=== PATIENT | male | born 1955 | race Caucasian/White ===

== ENCOUNTER → 2018-07-07 16:50 | Outpatient (CLI) | payer OTHER, SELFPAY ==
--- NOTE | 2018-07-07 16:54 | RAD_ITS ---
STUDY: X-RAY - RIGHT ANKLE REASON FOR EXAM: Male, 63 years old. Injury. Pain TECHNIQUE: 3 view(s) of the ankle. COMPARISON: None. FINDINGS: There is a minimally avulsed (1.2 mm) fracture involving the tip of the lateral malleolus with adjacent soft tissue swelling. There is no fracture of the medial malleolus and no soft tissue swelling around the medial malleolus. The ankle mortise and the subtalar joints are within normal limits. RAD/Ankle min 3 Views IMPRESSION: A minimally avulsed (1.2 mm) fracture involving the lateral malleolar tip with adjacent soft tissue swelling Electronically Signed: Abraham Hubbard MD at 23:31 EST Tel , Service support ,
== END ==
PROVIDERS: Family Provider Family Medicine; PCP Family Medicine; Referring Provider Family Medicine; Visit Provider Family Medicine
DX: S82.61XA Displaced fracture of lateral malleolus of right fibula, initial encounter for closed fracture (principal); S93.401A Sprain of unspecified ligament of right ankle, initial encounter; X58.XXXA Exposure to other specified factors, initial encounter
CPT/HCPCS: 73610

== ENCOUNTER 2021-12-18 00:13 | Observation (INO) | payer OTHER, SELFPAY ==
[2021-12-18] VITALS (16 sets, daily range): BP systolic 112–158; BP diastolic 62–92; PULSE 66–92; RESP 16–18; TEMP 36.5–38.1; O2SAT 93–99; BMI 26.9; BMI 26.4
--- NOTE | 2021-12-18 | GALL_PTH ---
PATIENT: JAMISON GARCIA LOC: MS3 U#:[id number] AGE/SX: 66/M ROOM: [facility] RE12/18/[address]: Dr. Unique Ovalle MD : [id number] BED: 1 DIS: 12/19/2021 SPEC #: [id number] RECD: 12/18/21 16:11 STATUS: PATTI ELIO #: [id number] LEX: 12/18/21 00:[address]: Unique Ovalle DEPT: SURGICAL PATHOLOGY RECD BY: Alberto Hicks ENTERED: 12/19/21 08:42 SP TYPE: DAYNA STEARNS DR: Stephan Belle Tissues: Gallbladder, NOS Procedures: Surgery Specimen Level III HEADER OPERATION: Laparoscopic cholecystectomy with IOC PRE-OP DIAGNOSIS: Acute cholecystitis, gallbladder sludge TISSUE SUBMITTED: Gallbladder MICROSCOPIC DIAGNOSIS Gallbladder, cholecystectomy: Acute and chronic cholecystitis. See comment. JUAN:ashley 12/20/2021 COMMENT No stones are identified in the container or in the gallbladder. MICROSCOPIC DESCRIPTION Slides are reviewed. GROSS DESCRIPTION Received is one container labeled with the patient's name and designated gallbladder. The specimen consists of a gallbladder measuring 9 cm in length and up to 3.5 cm in diameter. The external surface is pink-hayes, smooth and glistening for the most part. Focally it is granular, hemorrhagic and contains cautery artifact. The gallbladder contains hemorrhagic, purulent bile. No stones are identified in the container or in the gallbladder. The mucosa is bile-stained and without any mass lesions. The gallbladder wall measures up to 0.3 cm in thickness. Exhauster sections from the gallbladder and the cystic duct are submitted in one cassette. / SJ:rg 12/19/2021 TC:2 CPT: 08685
--- NOTE | 2021-12-18 00:34 | CT_ITS ---
STUDY: CT ABDOMEN AND PELVIS WITH CONTRAST REASON FOR EXAM: Male, 66 years old. RUQ pain RADIATION DOSAGE (If Supplied By Facility): CTDIvol = ( 12.22 ) mGy, DLP = ( 810.77 ) mGycm TECHNIQUE: Transaxial images were obtained from the dome of the diaphragm to the symphysis pubis without oral contrast. IV 75mL Isovue-370 was administered. Sagittal and coronal images were reconstructed. Individualized dose optimization techniques were used for this CT. COMPARISON: None. FINDINGS: The visualized lung bases are unremarkable. The visualized portions of the heart are within normal limits. Normal liver. There is mild thickening of the gallbladder wall may represent early cholecystitis. Normal spleen. Normal pancreas. Normal bilateral adrenal glands. Normal right kidney. Normal left kidney. Normal visualized stomach. Normal small intestine. There are multiple colonic diverticula consistent with diverticulosis. The appendix is visualized and appears normal. Normal abdominal aorta. Normal inferior vena cava. Normal retroperitoneum. Normal urinary bladder. Normal abdominal wall. Normal osseous structures. CT/Abdomen/Pelvis W IV Cont ONLY IMPRESSION: There is mild thickening of the gallbladder wall may represent early cholecystitis. Electronically Signed: Dora Edge MD at 2:39 EDT ,
--- NOTE | 2021-12-18 00:35 | EKG12_ITS ---
Test Reason : CHEST PAIN Blood Pressure : / mmHG Vent. Rate : 064 BPM Atrial Rate : 064 BPM P-R Int : 178 ms QRS Dur : 084 ms QT Int : 410 ms P-R-T Axes : 050 012 035 degrees QTc Int : 422 ms Normal sinus rhythm Normal ECG Confirmed by HUMBERTO FERGUSON, MARIANA ([id number]), publications editor RENEA GIBSON ([id number]) on 12/20/2021 9:05:53 AM Referred By: RICHARD Confirmed By:MARIANA PAUL MD
[2021-12-18] MEDS: 0.9% Normal Saline 1,000 ML 999 ML IV (00:40)
[2021-12-18 00:41] LABS: Absolute Lymphocyte Count 2.13 X10^3/uL (0.83-4.51); Absolute Neutrophil Count 5.1 X10^3/uL (2.0-7.7); Basophil# 0.03 X10^3/uL; Basophil% 0.4 % (0-1); Eosinophil# 0.11 X10^3/uL; Eosinophils% 1.4 % (0-5); Hemoglobin 14.6 g/dL (13.0-16.5); Lymphocyte # 2.13 X10^3/ul (0.83-4.51); Lymphocyte % 26.6 % (19-41); Mean Corp Hgb Conc 34.8 g/dL (32-36); Mean Corpuscular Hgb 28.5 pg (27.0-32.0); Mean Platelet Vol. 9.8 fl (6.2-12.0); Monocyte# 0.65 X10^3/uL; Monocyte% 8.1 % (0-10); NRBC Flagged by Analyzer 0 % (0-5); Neutrophil # 5.09 X10^3/uL (2.7-7.7); Neutrophil % 63.4 % (47-70); Platelet Count 203 K/mm3 (150-450); RBC Distribution Width SD 35.8 fl (35.1-43.9); Red Blood Count 5.12 M/mm3 (4.6-6.2)
[2021-12-18] MEDS: Ondansetron 4 MG/2 ML Vial IV (00:41)
[2021-12-18] MEDS: HYDROmorphone 0.5 MG/0.5 ML SYRINGE IV (00:41)
[2021-12-18 01:01] LABS: AST(SGOT) 54 U/L (15-37); Alanine Aminotransfer ALT/SGPT 64 U/L (16-61); Albumin, Serum 3.8 g/dL (3.2-5.0); Alkaline Phosphatase 103 U/L (45-117); Anion Gap 6 (5-15); BUN 18 mg/dL (7-18); BUN/Creat Ratio 17.6 RATIO (10-20); Bilirubin, Direct 0.25 mg/dL (0.00-0.30); Calcium,Total 8.9 mg/dL (8.5-10.1); Chloride 105 mmol/L (98-107); Creatinine, Serum 1.02 mg/dL (0.70-1.30); EST Glomerular Filtration Rate 78 mL/min (>60); Est Glom Filt Rate - Afr Amer 94 mL/min (>60); Estimated Creatinine Clearance 74.55 ml/min; Globulin 3.5 g/dL (2.2-4.2); Glucose 144 mg/dL (74-106); Lipase 122 U/L (73-393); Potassium 3.6 mmol/L (3.5-5.1); Protein, Total 7.3 g/dL (6.4-8.2); Sodium Level 141 mmol/L (136-145)
--- NOTE | 2021-12-18 04:00 | US_ITS ---
STUDY: ABDOMINAL ULTRASOUND - RIGHT UPPER QUADRANT REASON FOR VISIT: Male, [address] SHOWED MILD THICKENING OF GB ? EARLY CHOLECYSTITIS TECHNIQUE: Ultrasound evaluation of the right upper quadrant was performed with real-time and static del real-scale imaging. TECHNICAL QUALITY: Adequate. COMPARISON: None. FINDINGS: Liver: The liver measures 17.4 cm. There is increased echogenicity consistent with fatty infiltration. The bile ducts are within normal limits. There is hepatic color flow. The direction of portal flow is hepatopetal. There is no demonstrated mass lesion. Gallbladder: Normal distended gallbladder. The gallbladder wall measures 3 mm. There is a negative sonographic Chen''s sign. There is no pericholecystic fluid. There is biliary sludge dependent within the gallbladder. Common Bile Duct (C.B.D.): The common bile duct measures 7.6 mm. Pancreas: Normal size of the head, body and tail of the pancreas. There is normal echogenicity of the pancreas. There is no demonstrated pancreatic mass or cyst. Right Kidney: Normal size of the right kidney. The right kidney measures 12.1 x 6.5 x 6.6 cm. Normal renal cortex. The right cortex measures 1.6 cm. There is no demonstrated renal mass or cyst. There is no right hydronephrosis. US/Abdomen Limited IMPRESSION: Fatty infiltration of the liver. There is gallbladder wall thickening with pericystic fluid suggesting acute cholecystitis. There is biliary sludge dependent within the gallbladder. Electronically Signed: Dora Edge MD at 6:23 EDT ,
[2021-12-18] MEDS: Metoclopramide 10 MG/2 ML Vial IV (06:27)
--- NOTE | 2021-12-18 07:18 | EDS_ITS ---
HPI History of Present Illness Chief Complaint: Abd Pain Narrative Narrative: Patient is a 66-year-old male with history of hypertension who states that around 9:00 this evening he started developing mid upper abdominal pain with some nausea. He states he will occasionally have acid reflux pain that starts this way so he ate strawberry pie with whipped cream and then the pain began to intensify. He states he developed nausea associated with this. He reports as time is past the symptoms continue to persist and slightly worsen and secondary to this he comes in for evaluation. [facility] Medical History Hypertension Home Medications omeprazole 20 mg tablet,delayed release 20 mg PO QODAY 12/18/21 [History Last Taken Unknown] propranolol 80 mg tablet 80 mg PO BID 12/18/21 [History Last Taken Unknown] Allergy/AdvReac Type Severity Reaction Status Date / Time No Known Allergies Allergy Verified 12/18/21 00:20 Social History Smoking Status: Never smoker [facility] ED Constitutional Constitutional ED: Denies chills or fever(s) ENT ENT ED: Denies sore throat Cardiovascular Cardiovascular: Denies chest pain Respiratory/Chest Respiratory/Chest: Denies cough or dyspnea Gastrointestinal Gastrointestinal: Reports abdominal pain and nausea; Denies diarrhea or vomiting Genitourinary Genitourinary ED: Denies dysuria Musculoskeletal Musculoskeletal: Denies myalgias Integumentary Denies rash Neurologic Neurologic: Denies headache(s) Hematologic/Lymphatic Hematologic/Lymphatic: Denies easy bleeding or easy bruising EXAM Physical Exam Const Vital Signs: 12/18/21 00:14 12/18/21 06:13 12/18/21 06:58 Temperature 97.9 F Temperature Source Temporal Pulse Rate 70 72 Respiratory Rate 18 18 18 Blood Pressure 158/92 H 145/78 H Blood Pressure Mean 114 100 Pulse Ox 99 97 98 Oxygen Delivery Method Room Air Room Air Room Air Positive well nourished and well developed General Appearance ED: well developed HEENT Reports moist mucous membranes Eyes PERRL and EOMs intact bilaterally General Eye ED: Negative for scleral icterus Neck supple Resp normal respiratory effort and clear to auscultation bilaterally Cardio regular rate and regular rhythm Rate: other Other Details: Radial pulses are +2-4 bilaterally are equal and symmetric GI GI Narrative: Abdomen is soft and nondistended with normoactive bowel sounds. There is pain with palpation in the midepigastric and right upper quadrant but greatest in the right upper quadrant. There is no voluntary guarding or rigidity. Negative Chen sign. No pulsatile mass or fluid wave. Extremity normal to inspection Neuro oriented x3 and CN's II-XII intact bilaterally Sensorium / Orientation: alert Psych mental status grossly normal Skin no rashes or lesions noted General Skin Exam: Negative for jaundice MDM MDM MDM Narrative Medical decision making narrative: Patient presented ER slightly hypertensive but is in pain and with his past medical history this is to be expected. Otherwise he is afebrile stable vital. With his pain being greatest in the right upper quadrant there is concern this could be gallbladder dysfunction so basic labs were obtained as well as CAT scan. Labs revealed no clinically significant findings but CAT scan showed changes concerning for possible early cholecystitis. The case was discussed with general surgery who recommends patient have an ultrasound based on his symptoms and the CT read. The ultrasound did show pericholecystic fluid and sludge consistent/concerning for acute cholecystitis. Secondary to this the patient was started on Zosyn and will be evaluated by general surgery. General surgery evaluated the patient and do recommend admission at this time therefore he will be admitted to their service for further care Lab Data Attestation: I reviewed the patient's lab results. Labs: Laboratory Results - last 24 hr 12/18/21 12/18/21 00:20 00:20 WBC 8.0 RBC 5.12 Hgb 14.6 Hct 42.0 MCV 82.0 MCH 28.5 MCHC 34.8 RDW Std Deviation 35.8 RDW Coeff of Philip 12.0 Plt Count 203 MPV 9.8 Immature Gran % (Auto) 0.100 Neut % (Auto) 63.4 Lymph % (Auto) 26.6 [place] % (Auto) 8.1 Eos % (Auto) 1.4 Baso % (Auto) 0.4 Absolute Neuts (auto) 5.1 Absolute Lymphs (auto) 2.13 Nucleated RBC % 0 Sodium 141 Potassium 3.6 Chloride 105 Carbon Dioxide 30.0 Anion Gap 6 BUN 18 Creatinine 1.02 Estim Creat Clear Calc 74.55 Est GFR (MDRD) Af Amer 94 Est GFR (MDRD) Non-Af 78 BUN/Creatinine Ratio 17.6 Glucose 144 H Calcium 8.9 Total Bilirubin 0.60 Direct Bilirubin 0.25 AST 54 H ALT 64 H Alkaline Phosphatase 103 Total Protein 7.3 Albumin 3.8 Globulin 3.5 Lipase 122 Radiography Diagnostic Testing: Clinical Impression(s) from Imaging Studies Abdomen/Pelvis CT 12/18/21 00:34 IMPRESSION: There is mild thickening of the gallbladder wall may represent early cholecystitis. Electronically Signed: Dora Edge MD at 2:39 EDT Reading Location ID and State: [facility] / [place] Tel , Service support , Discharge Plan Triage Chief Complaint: Abd Pain ED Provider: Don Barry Dx/Rx/DC Orders Clinical Impression: Acute cholecystitis, Hypertension Prescriptions: No Action propranolol 80 mg tablet 80 mg PO BID omeprazole 20 mg Tablet,Delayed Release (Dr/Ec) 20 mg PO QODAY Primary Care Provider: Stephan Belle Referrals: Stephan Belle [Primary Care Provider] - Disposition Disposition: Acute Care Hospital [facility]
--- NOTE | 2021-12-18 07:22 | PCM.HP.STD ---
HPI - General HPI Narrative JAMISON GARCIA, is a 66 M who presents to the ER due to right upper quadrant pain. Patient states it started about 6 PM last night patient did eat at 5 PM. Patient does have a history of reflux does almost daily takes omeprazole 20 mg p.o. every couple days. The patient tried to eat some strawberry pie as his pain usually feels better with eating from the reflux/gastritis however that made the pain much worse?10 out of 10 on admission to the ER. Patient did have nausea and vomiting. Patient had a normal blood count and slight elevations of the AST ALT upon admission to the ER. Patient's CT abdomen pelvis question some gallbladder wall thickening. Patient had an ultrasound showed gallbladder wall 3 mm, pericholecystic fluid, sludge in the gallbladder, normal common bile duct. [facility] Medical History (Updated 12/18/21 @ 07:[address] Unique Ovalle MD) Hypertension Home Medications omeprazole 20 mg tablet,delayed release 20 mg PO QODAY 12/18/21 [History Last Taken Unknown] propranolol 80 mg tablet 80 mg PO BID 12/18/21 [History Last Taken Unknown] Allergy/AdvReac Type Severity Reaction Status Date / Time No Known Allergies Allergy Verified 12/18/21 00:20 Surgical History (Updated 12/18/21 @ 07:[address] Unique Ovalle MD) History of tonsillectomy Social History Smoking Status: Never smoker ROS Constitutional Constitutional: Reports anorexia; Denies chills Cardiovascular Cardiovascular: Denies chest pain Respiratory/Chest Respiratory/Chest: Denies cough Gastrointestinal Gastrointestinal: Reports abdominal pain, anorexia, heartburn, nausea and vomiting Vital Signs Vital Signs Vital Signs: 12/18/21 00:14 12/18/21 06:13 12/18/21 06:58 Temperature 97.9 F Temperature Source Temporal Pulse Rate 70 72 Respiratory Rate 18 18 18 Blood Pressure 158/92 H 145/78 H Blood Pressure Mean 114 100 Pulse Ox 99 97 98 Oxygen Delivery Method Room Air Room Air Room Air Weight Weight: 187 lb 6.287 oz Body Mass Index (BMI) 26.9 Physical Exam Const alert, oriented x3 and no apparent distress HEENT normocephalic and head/scalp atraumatic Resp normal respiratory effort Cardio regular rate GI soft to palpation; Negative for non-distended Palpation: tender RUQ; Negative for guarding Extremity no clubbing, cyanosis or edema Neuro CN's II-XII intact bilaterally Psych mental status grossly normal Results Lab / Micro Data Result Diagrams: 12/18/21 00:20 12/18/21 00:20 Labs: Laboratory Results - last 24 hr 12/18/21 00:20: WBC 8.0, RBC 5.12, Hgb 14.6, Hct 42.0, MCV 82.0, MCH 28.5, MCHC 34.8, RDW Std Deviation 35.8, RDW Coeff of Philip 12.0, Plt Count 203, MPV 9.8, Immature Gran % (Auto) 0.100, Neut % (Auto) 63.4, Lymph % (Auto) 26.6, [place] % (Auto) 8.1, Eos % (Auto) 1.4, Baso % (Auto) 0.4, Absolute Neuts (auto) 5.1, Absolute Lymphs (auto) 2.13, Nucleated RBC % 0 12/18/21 00:20: Sodium 141, Potassium 3.6, Chloride 105, Carbon Dioxide 30.0, Anion Gap 6, BUN 18, Creatinine 1.02, Estim Creat Clear Calc 74.55, Est GFR (MDRD) Af Amer 94, Est GFR (MDRD) Non-Af 78, BUN/Creatinine Ratio 17.6, Glucose 144 H, Calcium 8.9, Total Bilirubin 0.60, Direct Bilirubin 0.25, AST 54 H, ALT 64 H, Alkaline Phosphatase 103, Total Protein 7.3, Albumin 3.8, Globulin 3.5, Lipase 122 Radiology Impression Abdomen/Pelvis CT 12/18/21 00:34 IMPRESSION: There is mild thickening of the gallbladder wall may represent early cholecystitis. Electronically Signed: Dora Edge MD at 2:39 EDT , Assessment & Plan Assessment/Plan (1) Acute cholecystitis: (2) Gallbladder sludge: PLAN: Plan Continue Zosyn IV for acute cholecystitis. Reviewed the anatomy with the patient and discussed the procedure: laparoscopic cholecystectomy with cholangiograms, possible open. Review risks including but not limited to bleeding, infection, hernia, bile leak, retained gallstones requiring another procedure ERCP- Endoscopic Retrograde Cholangiopancreatography, injury to another organ (bile ducts, common bile duct, small bowel, etc.) and conversion to an open procedure. All questions were answered. Unique Ovalle M.D. Pager: [phone] [facility] [address] [place] [address], [address] [place] [id number] Office: [phone]
--- NOTE | 2021-12-18 07:48 | NURSING ---
MED SURG ROBOTHAM ACUTE CHOLECYSTITIS
--- NOTE | 2021-12-18 08:06 | ED.RN ---
see down time charting from 2am to 5 am
[2021-12-18] MEDS: 0.9% Normal Saline 1,000 ML 125 ML IV ×2 (09:22→16:04)
--- NOTE | 2021-12-18 11:32 | NURSING ---
pt to surgery
--- NOTE | 2021-12-18 12:00 | RAD_ITS ---
STUDY: INTRAOPERATIVE CHOLANGIOGRAM.. REASON FOR EXAM: Male, 66 years old. LAP KYM FLUOROSCOPY TIME (if supplied): ( 5.6 seconds ) minutes/seconds. A cine loop of 29 images was submitted. TECHNIQUE: An intraoperative Cholangiogram was performed by the surgeon. Imaging was submitted. COMPARISON: None. FINDINGS: The surgeon performed an intraoperative cholangiogram. The intrahepatic biliary ducts are unremarkable. The common bile duct is unremarkable as well. No intraluminal filling defect is seen. There is free flow of contrast into the duodenum. RAD/Cholangiogram/ O R,Initial IMPRESSION: Unremarkable intraoperative cholangiogram. Electronically Signed: Yasir Lamb MD at 14:00 EDT ,
[2021-12-18] MEDS: Lactated Ringers 1,000 ML 15 ML IV (13:30)
--- NOTE | 2021-12-18 14:08 | PCM.OPRPT ---
Report of Operation Date of Procedure: 12/18/21 Pre-Operative Diagnosis: Acute cholecystitis Post-Operative Diagnosis: Acute suppurative cholecystitis Surgery/Procedure Performed:: Laparoscopic cholecystectomy with cholangiograms Surgeon: Unique Ovalle gear technician: Rajni Ba Type of Anesthesia: Local MAC Anesthesiologist: Peewee Du Special Medications: Zosyn 3.375 g IV every 8 hours for acute cholecystitis Specimen's removed: Gallbladder Estimated Blood Loss (mL): 30 cc Description of Procedure: Indications: this is a 66 year-old male who developed abdominal pain/nausea/vomiting and on workup was found to have acute acute cholecystitis, gallbladder sludge, with a normal common bile duct. Laparoscopic cholecystectomy was elected. Description procedure: The patient was placed on operating table in supine position. A timeout was completed verifying correct patient, procedure, site, position and special equipment prior to beginning procedure. General Anesthesia was induced. The abdomen was prepped and draped in usual sterile fashion. An incision was made in the natural skin line above the umbilicus. The fascia was elevated and incised. The peritoneum was elevated and incised. Entry into the peritoneum was confirmed visually and no bowel was noted in the vicinity of the incision. John trocar was placed. The abdomen was insufflated with carbon dioxide to a pressure of 12-15 mmHg. Patient tolerated insufflation well. The laparoscope was then inserted and abdomen inspected. No injuries from initial trocar placement were noted. Additional trochars were then inserted in the following locations 5 mm trocar in the epigastrium and 2 more 5 mm trochars along the right costal margin. The abdomen was inspected no abnormalities were found. The table is placed in reverse Trendelenburg position with the right side up. The gallbladder was from needle was used to aspirate. Aspirate was purulent. The dome of the gallbladder was grasped with atraumatic grasper passed through the lateral port and retracted over the dome of the liver. Infundibulum was then grasped with atraumatic grasper through the midclavicular port and retracted to the right lower quadrant. This maneuver exposed Calot's triangle. The peritoneum overlying the gallbladder infundibulum was then incised and cystic duct and artery identified and circumferentially dissected. Pierre catheter was used for cholangiograms. The cholangiogram showed good filling of the common bile duct into the duodenum with no filling defects, good filling of the right and left bile ducts as well. The cystic duct and artery were then doubly clipped and divided close to the gallbladder. The gallbladder then dissected from its peritoneal attachments by electrocautery. Hemostasis was checked and the gallbladder and contained stones were removed using the endoscopic retrieval bag through the umbilical port. The gallbladder is passed off table as specimen. The gallbladder fossa was irrigated with saline/suction and hemostasis obtained. There is no evidence of bleeding from the gallbladder fossa or cystic artery leakage of bile from the cystic duct stump. Secondary trochars removed under direct vision. No bleeding was noted the trocar sites. The laparoscope was withdrawn and umbilical trocar removed. The abdomen was allowed to collapse. The fascia of the 12 mm trocar was closed with a [id number] 0 Vicryl suture. The skin was closed with sutures of 4-0 Monocryl and Steri-Strips. The patient was extubated. The patient tolerated procedure well and was taken to the postanesthesia care unit in stable condition. Complications none
[2021-12-18] MEDS: Bupivacaine Mpf 0.5% 30 ML VIAL (14:09)
--- NOTE | 2021-12-18 14:11 | DCINST_ITS ---
Discharge Instructions Diet Discharge Diet: Light diet - advance as tolerated Activity Discharge Activity: May Not Drive (while taking narcotic pain medications.) May shower in (days): 1 Lifting Restrictions: no lifting >20 lbs x 2 wks, no strenuous exercise for 4 wks Dressing / Incision Call your doctor if your incision/area has: Continuous Slow Oozing, Sudden Increased Bleeding, Increased Pain/ Swelling, Increased Redness, Foul Smelling Discharge and Swelling at the incision site Call your doctor if you observe: Fever of 101 or Higher Remove Dressing in: 2 days Cleanse incision/area with: Soap & Water Additional Dressing/Incision Instructions:: Steri-Strips will fall off in 7 to 10 days, if they do not fall off okay to remove after 10 days. Follow Up Care Please Follow Up With: Unique Ovalle MD When: Call the office for a follow-up appointment 2 weeks; after 5 PM and on the weekends call [phone] with any concerns. Test Results: Test results from this visit will be discussed in further detail at your follow- up appointment, if applicable. Discharge Plan Admission Admit Date/Time: 12/18/21 07:46 Attending Provider: Unique Ovalle Primary Care Provider: Stephan Belle Discharge Orders/Prescriptions Prescriptions: New oxycodone-acetaminophen 5-325 mg tablet 1 - 2 tab PO Q6H PRN (Reason: pain) 3 Days Qty: 15 0RF No Action propranolol 80 mg tablet 80 mg PO BID omeprazole 20 mg Tablet,Delayed Release (Dr/Ec) 20 mg PO QODAY Referrals / Follow Up: Stephan Belle [Primary Care Provider] - Disposition Disposition (needs filled in before D/C Order can be placed): Home, Self Care
[2021-12-18] MEDS: Propranolol 40 MG Tablet 80 MG PO (21:38)
[2021-12-18] MEDS: oxyCODONE 5 MG Tablet PO (21:40)
[2021-12-19 00:23] VITALS: BP 128/73; PULSE 80; RESP 18; TEMP 36.5; O2SAT 97
[2021-12-19 02:20] VITALS: BP 116/66; PULSE 82; RESP 18; TEMP 36.4; O2SAT 95
[2021-12-19] MEDS: 0.9% Normal Saline 1,000 ML 125 ML IV (04:35)
[2021-12-19] MEDS: Acetaminophen 325 MG Tablet 650 MG PO (05:33)
--- NOTE | 2021-12-19 07:42 | PN.SURG_ITS ---
Subjective Subjective Patient doing well tolerating clears can have regular for breakfast. Patient is pain is improved from before surgery. Denies nausea Objective Data Objective Data Vital Signs: Vital Signs Temp Pulse Resp BP Pulse Ox FiO2 97.6 F L 82 18 116/66 95 93 12/19/21 02:20 12/19/21 02:20 12/19/21 02:20 12/19/21 02:20 12/19/21 02:20 12/18/21 14:25 Oxygen Flow Rate (L/min) 4 Oxygen Delivery Method Room Air Weight: 184 lb Body Mass Index (BMI) 26.4 Intake & Output: Intake and Output for Last 24 Hours 12/17/21 12/18/21 12/19/21 23:59 23:59 23:59 Intake Total 3560 / 3560 1350 / 1350 Balance 3560 / 3560 1350 / 1350 Lab / Micro Data Result Diagrams: 12/18/21 00:20 12/18/21 00:20 Radiography Diagnostic Testing: Radiology Impression Abdomen Ultrasound 12/18/21 04:00 IMPRESSION: Fatty infiltration of the liver. There is gallbladder wall thickening with pericystic fluid suggesting acute cholecystitis. There is biliary sludge dependent within the gallbladder. Electronically Signed: Dora Edge MD at 6:23 EDT , Cholangiogram 12/18/21 12:00 IMPRESSION: Unremarkable intraoperative cholangiogram. Electronically Signed: Yasir Lamb MD at 14:00 EDT , Physical Exam Resp normal respiratory effort Cardio regular rate GI GI Narrative: Abdomen: Soft, nondistended, tender near incision's dressed clean dry and intact?possible small amount of swelling at the right lateral incision site no oozing from site, no peritoneal signs Assessment & Plan Assessment/Plan (1) S/P laparoscopic cholecystectomy: PLAN: Plan Patient doing well. Incisions healing well. May have a little swelling at the right lateral incision possible small hematoma. Okay to DC home with follow-up in 2 weeks. Unique Ovalle M.D. Pager: [phone] [facility] [address] [place] [address] [address] [place] [address] Office: [phone]
[2021-12-19] MEDS: Propranolol 40 MG Tablet 80 MG PO (08:11)
[2021-12-19 08:25] VITALS: BP 121/75; PULSE 68; RESP 16; TEMP 36.8; O2SAT 94
== END 2021-12-19 10:10 | disposition home or self-care (01) ==
LOC: ED 07:49 → MS3 08:13
PROVIDERS: Admitting Provider Surgery; Emergency Provider Emergency Medicine; Visit Provider Surgery
PROC: (CPT 47610; principal; 2021-12-18 12:20)
DX: K81.2 Acute cholecystitis with chronic cholecystitis (principal); I10 Essential (primary) hypertension; K83.8 Other specified diseases of biliary tract; K21.9 Gastro-esophageal reflux disease without esophagitis; Z79.899 Other long term (current) drug therapy; G47.30 Sleep apnea, unspecified
CPT/HCPCS: 47563; 00790; 74177; 74300; 76000; 76705; 80048; 80076; 83690; 85025; 88304; 93005; 96361; 96365; 96366; 96367; 96375; 99218; 99251; 99284; J7030; J7050; J7120; Q9967; A4216; G0378; G0463; J2405

== ENCOUNTER 2022-01-30 18:15 | Emergency (ER) | payer OTHER, SELFPAY ==
[2022-01-30 18:16] VITALS: BP 120/85; PULSE 63; RESP 16; TEMP 36.2; O2SAT 100; BMI 25.5
--- NOTE | 2022-01-30 18:33 | US_ITS ---
STUDY: VENOUS DOPPLER ULTRASOUND - RIGHT LOWER EXTREMITY REASON FOR EXAM: Male, 66 years old. RT CALF SWELLING/ D/T INJURY - KICKED BY A HORSE TECHNIQUE: Ultrasound evaluation of the deep vein system to include ballard-scale imaging and compression was performed. Ballard-scale imaging and Doppler sonographic evaluation, including duplex spectral analysis and qualitative color flow sonography, was performed. COMPARISON: None. FINDINGS: Common Femoral Vein: Normal compression, spontaneity and augmentation. Normal color Doppler. Common Femoral Vein/Greater Saphenous Junction: Normal compression, spontaneity and augmentation. Normal color Doppler. Deep Femoral Vein: Normal compression, spontaneity and augmentation. Normal color Doppler. Femoral Proximal: Normal compression, spontaneity and augmentation. Normal color Doppler. Femoral Middle: Normal compression, spontaneity and augmentation. Normal color Doppler. Femoral Distal: Normal compression, spontaneity and augmentation. Normal color Doppler. Popliteal Vein: Normal compression, spontaneity and augmentation. Normal color Doppler. Posterior Tibial Vein: Normal compression, spontaneity and augmentation. Normal color Doppler. Peroneal Vein: Normal compression, spontaneity and augmentation. Normal color Doppler. US/Venous Duplex Imag/Limited/Uni IMPRESSION: Normal venous Doppler ultrasound of the lower extremity. Electronically Signed: Adams Garibay MD at 19:37 EDT ,
--- NOTE | 2022-01-30 18:49 | EDS_ITS ---
HPI <MARITO Hinojosa - Last Filed: 01/30/22 18:56> History of Present Illness Chief Complaint: Lower Extremity Injury Narrative Narrative: 66-year-old male with history of hypertension with a prescription for propanolol presents to the emergency department with pain to the right lower extremity secondary to a horse kicking him 6 days ago. Patient states that he was kicked in the olivares below the knee by a horse, he was ambulatory, does not believe anything was broken however 3 days ago, he had severe cramping, shooting pain down the right leg. He did contact his PCP, his PCP was concerned for a blood clot and ordered him to the emergency department. Patient denies any pain to his lower calf, there is no redness to the area, patient has no pain to his posterior calf. Patient does have slight edema and abrasion where the horse made contact with his skin. PFSH <MARITO Hinojosa - Last Filed: 01/30/22 18:56> PFSH Medical History CPAP (continuous positive airway pressure) dependence GERD (gastroesophageal reflux disease) Hypertension Migraines Sleep apnea Home Medications omeprazole 20 mg tablet,delayed release 20 mg PO QODAY gerd 12/18/21 [History Last Taken 12/17/21] oxycodone-acetaminophen 5 mg-325 mg tablet 1 - 2 tab PO Q6H PRN pain 3 days #15 tabs 12/18/21 [Rx Last Taken Unknown] propranolol 80 mg tablet 80 mg PO BID 12/18/21 [History Last Taken 12/17/21] Allergy/AdvReac Type Severity Reaction Status Date / Time No Known Allergies Allergy Verified 01/02/22 13:24 Surgical History (Updated 12/19/21 @ 07:[address] Unique Ovalle MD) History of tonsillectomy S/P laparoscopic cholecystectomy Social History Smoking Status: Never smoker ROS <MARITO Hinojosa - Last Filed: 01/30/22 18:56> ROS ED ROS Narrative Constitutional: Negative for fever, chills, weight loss, weakness Eyes: Negative for vision loss, vision change, double vision ENT: Negative for any sore throat, ear pain, congestion Cardiovascular: Negative for any chest pain, tightness, palpitations Respiratory: Negative for any cough, sputum production, hemoptysis, dyspnea, dyspnea on exertion, orthopnea Gastrointestinal: Negative for any abdominal pain, nausea, vomiting, diarrhea, constipation, blood in stool, blood in vomit : Negative for any urinary frequency, dysuria, retention, blood in urine Muscle skeletal: Negative for any muscle joint pain, stiffness, myalgias, arthralgias, neck pain, back pain. Positive for right lower extremity pain, cramping to the area, edema Neurological: Negative for any headache, syncope, numbness or tingling, dizziness Skin: Negative for any rashes, lumps, itching, abrasions, lacerations Psychiatric: Negative for any depression, anxiety, stress, suicidal ideation, homicidal ideation Hematologic: Negative for any easy bruising, excessive bruising, easy bleeding Allergies: Negative for any eczema, hives, rash EXAM <MARITO Hinojosa - Last Filed: 01/30/22 18:56> Physical Exam Narrative Exam Narrative: LowerVital signs reviewed. HEET: Head normocephalic atraumatic, TMs clear bilaterally. Posterior pharynx is clear, moist mucous membranes. Nares clear bilaterally. Neck: Supple with no lymphadenopathy or tenderness. No signs of meningismus, negative jolt sign. Cardiac: Regular rate and rhythm no murmurs gallops or rubs, equal peripheral pulses bilaterally. Respiratory: Lungs clear to auscultation bilaterally. No chest tenderness. Abdomen: Soft, nontender, nondistended. No abdominal bruit or pulsatile masses. No hepatosplenomegaly Extremities: No peripheral edema, no signs of gross trauma or deformity. Active full range of motion of all extremities. Patient does have an abrasion to the knee below the knee, this is a scab from a past abrasion. Negative for any pain along the tibia Negative for any calf pain. +2 pedal pulse. Patient is able to flex and extend the knee without difficulty. Negative for any neurological focal deficit Neuro: Cranial nerves II through XII intact, no focal neurological deficits. Skin: Clean dry and intact with no rash, purpura, petechiae, vesicles or pustules. Backs/flank: No CVA tenderness, no midline spinal tenderness, no deformity. Psych: Normal mood and affect. No SI, HI or acute psychosis. Const Vital Signs: 01/30/22 18:16 01/30/22 18:16 Temperature 97.2 F L 97.2 F L Temperature Source Temporal Temporal Pulse Rate 63 63 Respiratory Rate 16 16 Blood Pressure 120/85 H 120/85 H Blood Pressure Mean 96 96 Pulse Ox 100 100 Oxygen Delivery Method Room Air Room Air <Freddy Gaxiola MD - Last Filed: 01/30/22 22:34> Physical Exam Const Vital Signs: 01/30/22 18:16 01/30/22 18:16 Temperature 97.2 F L 97.2 F L Temperature Source Temporal Temporal Pulse Rate 63 63 Respiratory Rate 16 16 Blood Pressure 120/85 H 120/85 H Blood Pressure Mean 96 96 Pulse Ox 100 100 Oxygen Delivery Method Room Air Room Air [facility] <MARITO Hinojosa - Last Filed: 01/30/22 18:56> [facility] Lab Data Attestation: I reviewed the patient's lab results. Radiography Diagnostic Testing: Clinical Impression(s) from Imaging Studies Venous Duplex 01/30/22 18:33 IMPRESSION: Normal venous Doppler ultrasound of the lower extremity. Electronically Signed: Adams Garibay MD at 19:37 EDT , Treatment and Re-Evaluation Narrative: Patient appears well, patient appears nontoxic, vital signs are stable. Patient presents to the emergency department with complaints of right lower extremity pain concerning for DVT secondary to a course kicking him 6 days ago. Patient's physical examination was consistent with a superficial injury, there is no neurological focal deficit. A venous duplex of the right lower extremity was completed to rule out a DVT, this was negative for any DVT. Patient will continue take ibuprofen, Tylenol. He will ice and elevate. He is stable for discharge <Freddy Gaxiola MD - Last Filed: 01/30/22 22:34> [facility] Narrative Medical decision making narrative: I have personally performed a face to face assessment of the patient and have reviewed the ALIREZA Note. I performed a substantive portion of the visit including all aspects of the following. My brooke findings include: History is injury to right anterior tibial surface, right thigh pain Exam is no bony tenderness right anterior tibial surface. Palpable dorsalis pedis pulse Medical Decision Making: Check ultrasound. Ultrasound negative. Discharge. Other additions or changes: [None] Radiography Diagnostic Testing: Clinical Impression(s) from Imaging Studies Venous Duplex 01/30/22 18:33 IMPRESSION: Normal venous Doppler ultrasound of the lower extremity. Electronically Signed: Adams Garibay MD at 19:37 EDT Reading Location ID and State: [facility] / [place] , Service support , Discharge Plan Triage Chief Complaint: Lower Extremity Injury ED Midlevel Provider: Marty Rubio ED Provider: Freddy Gaxiola Dx/Rx/DC Orders Clinical Impression: Contusion of lower leg, right Instructions: ED Contusion, Lower Extremity Prescriptions: No Action propranolol 80 mg tablet 80 mg PO BID omeprazole 20 mg Tablet,Delayed Release (Dr/Ec) 20 mg PO QODAY oxycodone-acetaminophen 5-325 mg tablet 1 - 2 tab PO Q6H PRN (Reason: pain) 3 Days Qty: 15 0RF Primary Care Provider: Stephan Belle Referrals: Stephan Belle [Primary Care Provider] - Activity Restrictions/Additional Instructions: Please ensure that you ice and elevate. Print Language: Slovak Disposition Disposition: Home, Self Care Discharge Date/Time: 01/30/22 18:58
== END 2022-01-30 18:58 | disposition home or self-care (01) ==
PROVIDERS: Emergency Provider Emergency Medicine; Visit Provider Emergency Medicine
DX: S80.11XA Contusion of right lower leg, initial encounter (principal); G47.30 Sleep apnea, unspecified; W55.12XA Struck by horse, initial encounter
CPT/HCPCS: 93971; 99282

== ENCOUNTER 2022-04-02 08:43 | Day surgery (SDC) | payer OTHER, SELFPAY ==
[2022-04-02] VITALS (8 sets, daily range): BP systolic 105–138; BP diastolic 71–84; PULSE 55–68; RESP 16; TEMP 36.2–36.6; O2SAT 97–99; BMI 25.0
--- NOTE | 2022-04-02 08:55 | HP.PCM_ITS ---
History and Physical Date of Admission: 04/02/22 Date of Service:? 03/07/22 MR#: [id number] Acct: [id number] Name:? JAMISON GARCIA Rep #: [id number] : 1955 ? ? Provider: Dr. Unique Ovalle MD Age/Sex:? 67/M ? ? Location: [facility] Status: Signed Intake Vital Signs ? 01/30/2218:16 Height 5 ft 10 in Weight: 177 lb 14.609 oz BMI 25.5 BP 120/85 H Respiration 16 Pulse 63 Temp 97.2 F L Temp Source Temporal Pulse Oximetry (%) 100 Intake Visit Reasons:?persistent RUQ pain and diarrhea s/p lap valeriano Chief Complaint: F/u gallbladder Quad Stayer Required: No Is patient in pain?: Yes Allergies No Known Allergies Allergy (Verified 03/07/22 10:27) Medications omeprazole 20 mg tablet,delayed release 20 mg PO QODAY gerd 12/18/21 [History Confirmed 03/07/22] propranolol 80 mg tablet 80 mg PO BID 12/18/21 [History Confirmed 03/07/22] cholestyramine (with sugar) 4 gram oral powder 4 g PO BID #378 grams 03/07/22 [Rx Confirmed 03/07/22] pantoprazole 40 mg tablet,delayed release 40 mg PO DAILY #30 tabs 03/07/22 [Rx Confirmed 03/07/22] Subjective Details: Six 7-year-old male presents status post laparoscopic cholecystectomy in December still states he has some occasional right upper quadrant pain as well as having diarrhea after eating fatty foods.? Patient states he can have normal bowel movements but as soon as he eats fatty foods he will have to go to the restroom to have diarrhea.? Patient's right upper quadrant pain states he denies any pain on palpation states he always constantly has a little bit there but if he hits a bump in the road or coughs he could have a lot more pain I can double him over.? Denies being related to eating.? Patient states occasionally friends and family no states he was told in his right side because it feels better.? Patient has been on PPIs since he was 19 years old.? Patient never had previous EGD.? Currently patient is on omeprazole 20 mg p.o. daily states he controls his symptoms otherwise he would have epigastric pain which was again doubling over if he forgot to take his medication for couple days.? Patient states previously he was on Nexium only because that is what came out and then insurance kept changing the generic version which did not agree with his stomach.? Thus patient went to just [id number].? Patient states his last colonoscopy was 5 to [address] Tatum states there were some polyps but they are benign so that he had 10 years. Objective Details: Abdomen: Soft, nondistended, mild tenderness palpation right upper quadrant epigastric, incisions well-healed.,? No peritoneal signs Coding Level of Care Code Off vis,est,level 3 Diagnoses RUQ pain? R10.11 Postprandial diarrhea? K52.9 GERD (gastroesophageal reflux disease)? K21.9 S/P laparoscopic cholecystectomy? Z90.49 PFSH Medical History?(Updated 03/07/22 @ 10:[address] Unique Ovalle MD) CPAP (continuous positive airway pressure) dependence GERD (gastroesophageal reflux disease) Hypertension Migraines Sleep apnea Surgical History? History of tonsillectomy S/P laparoscopic cholecystectomy Social History? Smoking Status:? Never smoker Assessment and Plan (No Qualifiers) Assessment and Plan (1) RUQ pain: ?Status:?Acute (2) Postprandial diarrhea: ?Status:?Acute (3) GERD (gastroesophageal reflux disease): ?Status:?Acute (4) S/P laparoscopic cholecystectomy: ?Status:?Acute ? ? ? Medications: New pantoprazole 40 mg? PO DAILY 30 tabs 5RF ? ? cholestyramine (with sugar) 4 gram ?? administer w/meal; avoid other meds within 1hr before or 4-6hr after dose 4 grams? PO BID 378 grams 2RF ? ? Discontinued oxycodone-acetaminophen 5-325 mg ?? Discontinued Reason:? Pt no longer taking 1 - 2 tabs? PO Q6H 3 days PRN 15 tabs 0RF pain G89.18 - Other acute postprocedural pain ? Plan Discussed with patient that his diarrhea after eating fatty foods can be due to cholecystectomy we will plan to try cholestryamine twice daily to see if this improves.? Patient is right upper quadrant pain seems to happen occasionally no direct correlation per patient's history however he did have some tenderness on exam.? Patient is also been on PPIs since he was 19 and is never had a previous EGD.? We will plan to check an EGD and change his omeprazole 20 mg p.o. daily to pantoprazole 40 mg p.o. daily.? Patient was agreeable with plan. I have discussed the above with the patient. I have offered the patient esophagogastroduodenoscopy for evaluation. I have explained the risks/benefits of the procedure and described the procedure.? I have discussed the risks with the patient, including but not limited to:? infection, bleeding, perforation of the GI tract requiring emergency surgery, inability to complete the procedure, injury to any internal organs, complications of anesthesia, etc. - the patient understands and agrees to proceed. I have answered all the patient's questions to the patient's satisfaction and the patient has no further questions. Unique Ovalle M.D. Pager: [phone] [facility] [address] [place] [address], [address] [place] [address] Office: [phone] 03/07/22 1032 <Electronically signed by Unique Ovalle MD> Date Unique Ovalle MD
[2022-04-02] MEDS: Lactated Ringers 1,000 ML 15 ML IV (09:14)
--- NOTE | 2022-04-02 09:45 | IMM_PTH ---
PATIENT: JAMISON GARCIA LOC: EN U#:[id number] AGE/SX: 67/M ROOM: RE04/02/[address]: Dr. Unique Ovalle MD : 1955 BED: DIS: 04/02/2022 SPEC #: [id number] RECD: 04/02/22 11:43 STATUS: PATTI REGee #: [id number] LEX: 04/02/22 09:[address]: Unique Ovalle DEPT: IMMUNOHISTOCHEMISTRY RECD BY: Aviva Pope ENTERED: 04/02/22 11:43 SP TYPE: IMMUNO OTHR DR: Stephan Belle Tissues: A - Stomach, NOS Procedures: H Pylori (initial) PHYSICIAN & INSTITUTION [place] [id number] SPECIMEN INFORMATION: Tissue Source: A - Antrum Clinical Info: RUQ pain, postprandial diarrhea, GERD Specimen Number: [id number] CPT code: 91322 METHODOLOGY: Deparaffinized sections of prefer/formalin-fixed tissue or PAP/DQ stained slides are incubated with monoclonal/polyclonal antibodies/oligonucleotide probes. Localization is made via biotin free immunoperoxidase method. Appropriate controls are performed and reacted as expected. Results on target cell population are indicated in the following table: RESULTS: ANTIBODY / CLONE RESULT Block A H Pylori (polyclonal) negative These tests were developed and their performance characteristics determined by [facility]. They may not have been cleared or approved by the U.S. Food and Drug Administration. The FDA has determined that such clearance or approval is not necessary. The above immunohistochemical/dualISH markers are ordered and reviewed by the Pathologist. INTERPRETATION: A. Antrum, biopsy: Negative for Helicobacter pylori organisms. AM:ashley 04/03/2022
--- NOTE | 2022-04-02 09:45 | EGD_PTH ---
PATIENT: JAMISON GARCIA LOC: EN U#:[id number] AGE/SX: 67/M ROOM: RE04/02/[address]: Dr. Unique Ovalle MD : 1955 BED: DIS: 04/02/2022 SPEC #: [id number] RECD: 04/02/22 11:10 STATUS: PATTI ELIO #: [id number] LEX: 04/02/22 09:[address]: Unique Ovalle DEPT: SURGICAL PATHOLOGY RECD BY: Isrrael Dickerson ENTERED: 04/02/22 11:30 SP TYPE: EGD BIOPSY OT DR: Stephan Belle Tissues: A - Gastric mucous membrane B - Gastric mucous membrane C - Gastric mucous membrane D - Gastric mucous membrane Procedures: Special Stain Group II Surgery Specimen Level IV Alcian Blue/PAS (control) HEADER OPERATION: EGD ([facility]) with biopsies PRE-OP DIAGNOSIS: RUQ pain, postprandial diarrhea, GERD TISSUE SUBMITTED: A ? Antrum for H. pylori and path, B ? Gastric polyps, C ? Gastroesophageal junction biopsy, D ? Gastric body biopsy MICROSCOPIC DIAGNOSIS A. Gastric antrum, biopsy: Chronic gastritis. See comment. B. Gastric polyps, biopsy: Fragments of fundic gland polyp. C. Gastroesophageal junction, biopsy: Chronic inflammation. No evidence of goblet cell metaplasia. See comment. D. Gastric body, biopsy: Chronic gastritis. AM:ashley 04/03/2022 COMMENT A. The results of immunohistochemistry for Helicobacter pylori will be reported separately ([id number]). C. Alcian blue/PAS stain with matched control supports the above diagnosis. MICROSCOPIC DESCRIPTION Slides are reviewed. GROSS DESCRIPTION A - Received in fixative is one container labeled with the patient's name and designated antrum biopsy. The specimen consists of one irregular fragment of light hayes soft tissue that measures 0.3 x 0.3 x 0.1 cm. The specimen is totally submitted in one cassette. B - Received in fixative is one container labeled with the patient's name and designated gastric polyps. The specimen consists of two hayes-pink polyps measuring 0.6 x 0.6 x 0.5 cm and 0.5 x 0.6 x 0.5 cm. Also present in the container are two small fragments of hayes soft tissue measuring in aggregate 0.5 x 0.3 x 0.1 cm. The two polyps are bisected. The entire specimen is submitted in one cassette. C - Received in fixative is one container labeled with the patient's name and designated GE junction biopsy. The specimen consists of two irregular fragments of light hayes soft tissue that in aggregate measure 0.6 x 0.3 x 0.1 cm. The specimen is totally submitted in one cassette. D - Received in fixative is one container labeled with the patient's name and designated gastric body biopsy. The specimen consists of one irregular fragment of light hayes soft tissue that measures 0.9 x 0.2 x 0.1 cm. The specimen is totally submitted in one cassette. / SJ:rg 04/02/2022 TC:3 CPT: 49224 x4, 61822
--- NOTE | 2022-04-02 10:04 | OP.CCLET_ITS ---
04/02/2022 Stephan Belle Re : Upper GI endoscopy procedure for Bhanu Carter Yoshi This procedure was performed on Saturday, April 02, 2022. My impressions and recommendations are as follows: Impressions : - Z-line irregular, 40 cm from the incisors. Biopsied. - A few gastric polyps. Resected and retrieved. - Erythematous mucosa in the antrum. Biopsied. - Enlarged gastric folds. Biopsied. - Normal examined duodenum. Recommendations : - Await pathology results. - Discharge patient to home. - Resume previous diet. - Continue present medications. - Perform CT scan (computed tomography) of the abdomen with contrast at appointment to be scheduled. My findings are described in the full procedure note, which is enclosed. If I can be of further assistance, please feel free to contact me at Doctor phone number(s): , Work: . Sincerely, MD Unique Hodgson MD 04/02/2022 10:03:34 AM This report has been signed electronically.
--- NOTE | 2022-04-02 10:04 | OP.EGD_ITS ---
Patient Name: Bhanu Sheth Procedure Date: 04/02/2022 9:29 AM Date of : 1955 Age: 67 Procedure: Upper GI endoscopy Indications: Epigastric abdominal pain, Abdominal pain in the right upper quadrant, Heartburn Providers: Unique Ovalle MD Medicines: Monitored Anesthesia Care Patient Profile: This is a 67 year old male. Complications: No immediate complications. Procedure: Pre-Anesthesia Assessment: - Prior to the procedure, a History and Physical was performed, and patient medications and allergies were reviewed. The patient's tolerance of previous anesthesia was also reviewed. The risks and benefits of the procedure and the sedation options and risks were discussed with the patient. All questions were answered, and informed consent was obtained. Prior Anticoagulants: The patient has taken no previous anticoagulant or antiplatelet agents. ASA Grade Assessment: Per anesthesia. After reviewing the risks and benefits, the patient was deemed in satisfactory condition to undergo the procedure. After obtaining informed consent, the endoscope was passed under direct vision. Throughout the procedure, the patient's blood pressure, pulse, and oxygen saturations were monitored continuously. The gastroscope was introduced through the mouth, and advanced to the second part of duodenum. The upper GI endoscopy was accomplished without difficulty. The patient tolerated the procedure well. Scope In: 9:35:33 AM Scope Out: 9:47:39 AM Total Procedure Duration Time 0 hours 12 minutes 6 seconds Findings: The Z-line was irregular and was found 40 cm from the incisors. Biopsies were taken with a cold forceps for histology. A few less than 5 mm semi-sessile polyps with no bleeding and no stigmata of recent bleeding were found in the gastric body. The polyp was removed with a hot snare. Resection and retrieval were complete. Striped mildly erythematous mucosa without bleeding was found in the gastric antrum. Biopsies were taken with a cold forceps for histology. Biopsies were taken with a cold forceps for Helicobacter pylori cultures. Localized prominent gastric folds were found on the greater curvature of the gastric body. Biopsies were taken with a cold forceps for histology. The examined duodenum was normal. The cardia and gastric fundus were normal on retroflexion. Impression: - Z-line irregular, 40 cm from the incisors. Biopsied. - A few gastric polyps. Resected and retrieved. - Erythematous mucosa in the antrum. Biopsied. - Enlarged gastric folds. Biopsied. - Normal examined duodenum. Recommendation: - Await pathology results. - Discharge patient to home. - Resume previous diet. - Continue present medications. - Perform CT scan (computed tomography) of the abdomen with contrast at appointment to be scheduled. Procedure Code(s): --- Professional --- 71634, PT, Esophagogastroduodenoscopy, flexible, transoral; with removal of tumor(s), polyp(s), or other lesion(s) by snare technique Diagnosis Code(s): --- Professional --- K22.8, Other specified diseases of esophagus K31.7, Polyp of stomach and duodenum K31.89, Other diseases of stomach and duodenum K29.60, Other gastritis without bleeding R10.13, Epigastric pain R10.11, Right upper quadrant pain R12, Heartburn CPT copyright 2017 [employer] [employer]. All rights reserved. The codes documented in this report are preliminary and upon pedodontist review may be revised to meet current compliance requirements. MD Unique Hodgson MD 04/02/2022 10:03:34 AM This report has been signed electronically. Number of Addenda: 0 Note Initiated On: 04/02/2022 9:29 AM
== END 2022-04-02 10:56 | disposition home or self-care (01) ==
LOC: EN 08:43 → AC 08:44
PROVIDERS: Referring Provider Surgery; Visit Provider Surgery
PROC: 0DJ08ZZ Inspection of Upper Intestinal Tract, Via Natural or Artificial Opening Endoscopic (ICD-10-PCS; CPT 43235; principal; 2022-04-02 09:40)
DX: K29.50 Unspecified chronic gastritis without bleeding (principal); I10 Essential (primary) hypertension; K21.00 Gastro-esophageal reflux disease with esophagitis, without bleeding; K31.89 Other diseases of stomach and duodenum; K31.7 Polyp of stomach and duodenum; G47.30 Sleep apnea, unspecified; Z79.899 Other long term (current) drug therapy
CPT/HCPCS: 43239; 43251; 88305; 88313; 88342; J7120

== ENCOUNTER → 2022-04-11 | Outpatient (CLI) | payer OTHER, SELFPAY ==
--- NOTE | 2022-04-11 08:26 | CT_ITS ---
STUDY: CT ABDOMEN WITH CONTRAST REASON FOR EXAM: Male, 67 years old. Right upper quadrant pain. The patient is 4 months following cholecystectomy. RADIATION DOSAGE (If Supplied By Facility): CTDIvol = ( 15.89 ) mGy, DLP = ( 630.12 ) mGycm TECHNIQUE: Transaxial images were obtained post I.V. administration of Oral and amp; IV Readi-CAT and amp; 100mL Isovue-300, and oral contrast. Sagittal and coronal images were reconstructed. Individualized dose optimization techniques were used for this CT. COMPARISON: Comparison is made with prior study dated 12/18/2021. FINDINGS: Calcified left hilar lymph nodes. Coronary artery calcification. There is decreased attenuation of the liver consistent with steatosis. The gallbladder is contracted. Normal spleen. Normal pancreas. Normal bilateral adrenal glands. Normal right kidney. Normal left kidney. Normal visualized stomach. Normal small intestine. Normal colon. The appendix is visualized and appears normal. There is scattered atherosclerotic calcification of the abdominal aorta, without a demonstrated aneurysm. Normal inferior vena cava. Normal retroperitoneum. Normal abdominal wall. There are mild degenerative changes of the visualized lumbar spine. CT/Abdomen WITH IV Contrast IMPRESSION: Fatty infiltration of the liver. Status post cholecystectomy. Electronically Signed: Yasir Lamb MD at 11:05 EDT ,
[2022-04-11 08:55] LABS: CREATININE FINGERSTICK < 0.9 mg/dL (0.70-1.30); EGFR FINGERSTICK > 60.0000 mL/min (>60)
== END | disposition home or self-care (01) ==
LOC: CT 08:22
PROVIDERS: Visit Provider Surgery
DX: R10.11 Right upper quadrant pain (principal)
CPT/HCPCS: 74160; Q9967

== ENCOUNTER → 2022-08-25 | Outpatient (CLI) | payer OTHER, SELFPAY ==
--- NOTE | 2022-08-25 08:21 | MRI_ITS ---
EXAM: MR HEAD WITHOUT AND WITH INTRAVENOUS CONTRAST CLINICAL INDICATION: Bilateral optic atrophy. TECHNIQUE: Multiplanar and multisequence MR images of the brain were obtained without and with intravenous contrast. This report was created using [employer] technology. CONTRAST: 50 mL of IV Clariscan. COMPARISON: MRI brain without contrast 06/04/2013. FINDINGS: BRAIN AND EXTRA-AXIAL SPACES: Unremarkable. No intra- or extra-axial hemorrhage. No evidence of acute infarct. No intracranial mass or mass effect. There is preservation of the del real/white matter interface. Posterior fossa structures are unremarkable. Ventricles are appropriate for age. No hydrocephalus. Basal cisterns are patent. No focal signal abnormalities throughout the brain parenchyma in all pulse sequences. No abnormal enhancing lesions intra-axially and extra-axially. SELLA: Unremarkable. Normal sella turcica, pituitary gland, infundibular stalk, optic chiasm and hypothalamus. AUDITORY SYSTEM: Unremarkable. The internal auditory canals are patent. BONES/JOINTS: Unremarkable. No discrete lytic or blastic abnormalities. SINUSES: Unremarkable as visualized. Clear. MASTOID AIR CELLS: Unremarkable as visualized. Clear. ORBITS: Atrophy of both optic nerves are unchanged. 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 This is hyperintense on T2 FLAIR sequence with irregular contrast enhancement. This measures 2.5 x 2.3 x 1.6 cm and is unchanged. MRI/Brain W/WO Contrast IMPRESSION: 1. 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 Etiology is unknown. 2. 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 This is, however, stable and unchanged since 06/04/2013. 3. The brain, ventricles and cisterns are normal with and without contrast. 4. No significant interval change since 06/04/2013. Electronically Signed: Freddy Lees MD at 10:04 [facility] ,
== END | disposition home or self-care (01) ==
LOC: MRI 07:57
PROVIDERS: Referring Provider Ophthalmology; Visit Provider Ophthalmology
DX: H51.8 Other specified disorders of binocular movement (principal)
CPT/HCPCS: 70553; A9581